=== PATIENT | female | born 1965 ===

== ENCOUNTER → 2018-01-01 | Outpatient (CLI) | payer BC | LOC: GMAH 11:20 | PROVIDERS: ATTEND Family Medicine | DX: I10 Essential (primary) hypertension (principal) ==

== ENCOUNTER → 2019-06-23 | Outpatient (CLI) | payer BC ==
--- NOTE | 2019-06-25 18:30 | MAM ---
EXAM DESCRIPTION: 3D Screening BILATERAL : Digital Mammography. CLINICAL HISTORY: 53 years Female . SCREENING. No complaints. No personal history of breast cancer. Remote family history of breast cancer. Menarche age 12. Childbirth. Postmenopausal less than one year. No HRT. Lifetime risk of developing breast cancer (Tyrer-Cuzick model)(%): 8.7. COMPARISON: Baseline study at this facility.. No prior reports available. TECHNIQUE: Bilateral CC and MLO projection full-field images, digital tomosynthesis mammographic technique. Bilateral digital 2-D full-field MLO images. CAD not available for tomosynthesis or 2-D images. FINDINGS: The breast parenchymal density pattern is: Extremely dense breast tissue, which lowers the sensitivity of mammography. No skin thickening or nipple retraction. Bilateral solitary microcalcifications. Bilateral vascular calcifications. No focal, stellate mass or density, focal asymmetry , and no suspicious microcalcifications bilaterally. IMPRESSION: Benign exam. BIRAD CATEGORY: 2 BENIGN FINDINGS. RECOMMENDATIONS: FOLLOW UP: Routine digital bilateral mammographic screening, one year interval from June 2019. Written communication explaining the IMPRESSION and follow-up, will be mailed to the patient and referring health care provider. According to the [employer], yearly mammograms are recommended starting at age 40 and continuing as long as a woman is in good health. Any breast change noted on a breast self-exam should be reported promptly to the patient's healthcare provider. Breast MRI is recommended for women with an approximately 20-25% or greater lifetime risk of breast cancer, including women with a strong family history of breast or ovarian cancer and women who have been treated for Hodgkin's disease. A negative mammographic report should not delay tissue diagnosis in patients with significant clinical history or physical findings. Extremely dense breast tissue limits the sensitivity of digital mammography. Electronically signed by: Ori Hoffmann MD 06/25/2019 6:29 PM [employer]
== END ==
LOC: MAMMO 15:22
PROVIDERS: ATTEND Obstetrics & Gynecology
DX: Z12.31 Encounter for screening mammogram for malignant neoplasm of breast (principal)

== ENCOUNTER → 2020-03-17 | Outpatient (CLI) | payer BC ==
--- NOTE | 2020-03-17 15:37 | MRI ---
Study: MRI of the Left Hip. Indication: PAIN IN LEFT HIP Technique: Multiplanar, multi sequence MRI of the left hip was obtained without intravenous contrast. Comparison: None Findings: Patchy diminished T1 marrow signal throughout the pelvis with mild elevated STIR signal. This likely reflects red marrow reconversion but is nonspecific. No acute fracture or osteonecrosis identified. High-grade tendinosis of the right gluteus minimus/medius tendon insertions with mild right greater trochanteric bursal edema as well as associated intramuscular edema. Less pronounced tendinosis of the left gluteal tendon insertions. High-grade tendinosis bilateral hamstring tendon origins. Mild edema in the bilateral quadratus femoris muscles without significant narrowing of the ischiofemoral spaces. Severe pubic symphysis osteoarthritis. Mild to moderate bilateral hip osteoarthritis with areas of grade 3 chondral thinning and tiny osteophytes. Degeneration of the anterior superior left hip labrum noted. Physiologic volume bilateral hip joint fluid. Impression: Mild to moderate bilateral hip osteoarthritis without acute fracture or osteonecrosis. Suspected red marrow reconversion throughout the pelvis but ultimately nonspecific. Marrow infiltrating process not excluded. Correlation with CBC recommended. Bone marrow biopsy may prove useful as well. High-grade tendinosis and attenuation right gluteus minimus/medius tendon insertions as above. Additional findings as above. Electronically signed by: Real Jackson MD 03/17/2020 3:35 PM CDT
== END ==
LOC: MRI 09:09
PROVIDERS: ATTEND Family Medicine
DX: M16.0 Bilateral primary osteoarthritis of hip (principal); D75.9 Disease of blood and blood-forming organs, unspecified; M76.01 Gluteal tendinitis, right hip; R60.9 Edema, unspecified

== ENCOUNTER → 2020-04-11 | Outpatient (CLI) | payer BC ==
--- NOTE | 2020-04-11 12:31 | RAD ---
EXAM DESCRIPTION: Pelvis (accession [id number]), Hip,Right 2 Views (accession [id number]) CLINICAL HISTORY: 54 years Female, HIP PAIN RIGHT COMPARISON: March 17, 2020 Findings: Three views/radiographs Location: Right hip/pelvis No acute fracture or dislocation. Moderate bilateral hip osteoarthritis. Soft tissues are unremarkable. IMPRESSION: No evidence of acute process in the right hip/pelvis. Electronically signed by: Francesco Gomez MD 04/11/2020 12:29 PM CDT
--- NOTE | 2020-04-11 12:31 | RAD ---
EXAM DESCRIPTION: Pelvis (accession [id number]), Hip,Right 2 Views (accession [id number]) CLINICAL HISTORY: 54 years Female, HIP PAIN RIGHT COMPARISON: March 17, 2020 Findings: Three views/radiographs Location: Right hip/pelvis No acute fracture or dislocation. Moderate bilateral hip osteoarthritis. Soft tissues are unremarkable. IMPRESSION: No evidence of acute process in the right hip/pelvis. Electronically signed by: Francesco Gomez MD 04/11/2020 12:29 PM CDT
== END | disposition home or self-care (01) ==
LOC: RAD 07:50
PROVIDERS: ATTEND Orthopaedic Surgery
DX: M25.551 Pain in right hip (principal)